=== PATIENT | male | born 1980 | race Hispanic/Latino ===

== ENCOUNTER 2016-08-19 14:31 | Emergency (ER) | payer MEDICAID ==
[2016-08-19 15:39] VITALS: BP 141/102
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
--- NOTE | 2016-08-19 16:23 | Cat Scan Report ---
CT CERVICAL SPINE WITHOUT CONTRAST INDICATION: C-spine tenderness. COMPARISON: None similar. FINDINGS: Noncontrast axial, sagittal and coronal CT reconstructions through the cervical spine demonstrate normal visualized intracranial appearance. Assessment of the spinal canal from C7 inferiorly compromised due to artifact from shoulder soft tissues. Clear included mastoid air cells. Symmetric occipital condyles. Normal anterior and posterior arches of C1. Intact craniocervical articulation with normal predental space, prevertebral soft tissues, vertebral body stature and posterior elements. Straightening noted, possibly positional versus spasm. Mild degenerative spurring from C4 inferiorly. Slight disc narrowing at few levels may also be present. Normal included thyroid. Clear visualized lung apices. On the obtained axial images: C5-C6 demonstrate mild diffuse disc bulge/osteophyte complex. C6-C7 also demonstrates central to right paracentral disc/osteophyte complex possibly approaching the cord. CONCLUSION: Cervical spine straightening and mild degenerative changes, as above. Please correlate. Thank you for the opportunity to participate in this patient's care.
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
[2016-08-19] MEDS ORDERED: TYLENOL PO ONE (17:27)
== END 2016-08-19 17:45 | disposition home or self-care (01) ==
LOC: ED 14:31
DX: R51 Headache (principal); M54.2 Cervicalgia; M25.511 Pain in right shoulder; M25.512 Pain in left shoulder; F17.200 Nicotine dependence, unspecified, uncomplicated; Z88.8 Allergy status to other drugs, medicaments and biological substances; V49.9XXA Car occupant (driver) (passenger) injured in unspecified traffic accident, initial encounter; Y93.89 Activity, other specified; Y99.9 Unspecified external cause status; Y92.410 Unspecified street and highway as the place of occurrence of the external cause
CPT/HCPCS: 70450; 72125

== ENCOUNTER 2016-10-23 11:44 | Emergency (ER) | payer MEDICAID ==
[2016-10-23 12:21] LABS: Basophils % (Auto) 0.6 % (0.0-1.8); Eosinophils % (Auto) 0.3 % (0.0-4.3); Hematocrit 44.2 % (35.5-45.6); Hemoglobin 14.6 gm/dl (11.8-15.2); Mean Corpuscular HGB Conc 33 % (32-34); Mean Corpuscular Hemoglobin 29 pg (28-32); Mean Corpuscular Volume 89 fl (84-94); Platelet Count 338 K/mm3 (140-440); Red Blood Count 4.98 M/mm3 (3.65-5.03); White Blood Count 14.8 K/mm3 (4.5-11.0)
[2016-10-23 12:39] LABS: Anion Gap 20 mmol/L; BUN/Creatinine Ratio 15.71; Blood Urea Nitrogen 11 mg/dL (9-20); Calcium 9.3 mg/dL (8.4-10.2); Carbon Dioxide 25 mmol/L (22-30); Chloride 105.1 mmol/L (98-107); Glucose 112 mg/dL (75-100); Sodium 146 mmol/L (137-145)
[2016-10-23 14:07] LABS: Urine Drugs of Abuse Note Disclamer
[2016-10-23 14:19] LABS: Bilirubin,Urine NEG (Negative); Blood,Urine NEG (Negative); Ketones,Urine NEG (Negative); Leukocyte Esterase,Urine NEG (Negative); Mucus,Urine FEW /HPF; Nitrite,Urine NEG (Negative); Protein,Urine <15 mg/dL mg/dL (Negative); Urobilinogen,Urine < 2.0 mg/dL (<2.0)
[2016-10-23] MEDS ORDERED: ZOFRAN ODT PO ONE (16:34)
[2016-10-23] MEDS ORDERED: CATAPRES PO ONE (16:34)
--- NOTE | 2016-10-23 18:22 | Emergency Department Report ---
ED Psych HPI - General Chief Complaint: Psych Stated Complaint: OPIATE WITHDRAWL Time Seen by Provider: 10/23/16 16:33 Source: patient, EMS Mode of arrival: Ambulatory - History of Present Illness Initial Comments: 36-year-old male with past medical history of chronic pain presenting to the emergency department complaining of opiate withdrawal. Patient states he's been on morphine and oxycodone for approximately 12 years secondary to herniated cervical discs and is now wanting to refrain from taking those medications. Patient states he is now going into withdrawals. Patient states his symptoms are nausea, and abdominal cramping. Pt denies: Fever/chills, chest pain, and vomiting. Patient states he's heard about Suboxone and he is interested in starting the treatment to help with his opiate withdrawal. - Related Data Home Medications Medication Instructions Recorded Confirmed Last Taken Morphine Sulfate 30 mg PO BID 08/19/16 10/23/16 08/18/16 oxyCODONE [Roxicodone] 10 mg PO Q6HR PRN 08/19/16 10/23/16 08/19/16 Allergies Allergy/AdvReac Type Severity Reaction Status Date / Time ketorolac tromethamine Allergy Shortness Verified 08/19/16 15:32 [From Toradol] of Breath tramadol Allergy Shortness Verified 08/19/16 15:32 of Breath ED Review of Systems ROS: Stated complaint: OPIATE WITHDRAWL Other details as noted in HPI Constitutional: denies: chills, fever Eyes: denies: eye pain, eye discharge, vision change ENT: denies: ear pain, throat pain Respiratory: denies: cough, shortness of breath, wheezing Cardiovascular: denies: chest pain, palpitations Endocrine: no symptoms reported Gastrointestinal: nausea. denies: abdominal pain, vomiting, diarrhea Genitourinary: denies: urgency, dysuria Musculoskeletal: denies: back pain, joint swelling, arthralgia Skin: denies: rash, lesions Neurological: denies: headache, weakness, paresthesias Psychiatric: anxiety. denies: depression, auditory hallucinations, visual hallucinations, homicidal thoughts, suicidal thoughts Hematological/Lymphatic: denies: easy bleeding, easy bruising ED Past Medical Hx - Past Medical History Previous Medical History?: Yes Hx Psychiatric Treatment: Yes (Treatment for cocaine, heroin and crack cocaine) Additional medical history: Opiate dependency. spinal stenosis, Herniated disc - Surgical History Past Surgical History?: Yes Hx Open Heart Surgery: Yes (as a child) Additional Surgical History: Melanoma removed from right forearm - Social History Smoking Status: Current Every Day Smoker Substance Use Type: Prescribed - Medications Home Medications: Home Medications Medication Instructions Recorded Confirmed Last Taken Type Morphine Sulfate 30 mg PO BID 08/19/16 10/23/16 08/18/16 History oxyCODONE [Roxicodone] 10 mg PO Q6HR PRN 08/19/16 10/23/16 08/19/16 History ED Physical Exam - General Limitations: No Limitations General appearance: alert, in no apparent distress - Head Head exam: Present: atraumatic, normocephalic - Eye Eye exam: Present: normal appearance - ENT ENT exam: Present: mucous membranes moist - Neck Neck exam: Present: normal inspection - Respiratory Respiratory exam: Present: normal lung sounds bilaterally. Absent: respiratory distress - Cardiovascular Cardiovascular Exam: Present: regular rate, normal rhythm. Absent: systolic murmur, diastolic murmur, rubs, gallop - GI/Abdominal GI/Abdominal exam: Present: soft, normal bowel sounds - Rectal Rectal exam: Present: deferred - Extremities Exam Extremities exam: Present: normal inspection - Back Exam Back exam: Present: normal inspection - Neurological Exam Neurological exam: Present: alert, oriented X3 - Psychiatric Psychiatric exam: Present: normal affect, normal mood - Skin Skin exam: Present: warm, dry, intact, normal color. 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 Pt has been evalauted by Psych Scrubber Machine Tender Lyubov who will attempt to find placement into Detox facility. Pt medically cleared. he is not on 1012 nor 2012 Critical Care Time: No Critical care attestation.: If time is entered above; I have spent that time in minutes in the direct care of this critically ill patient, excluding procedure time. ED Disposition Clinical Impression: Opioid withdrawal, Nausea Disposition: [id number] ANOTHER TYPE HLTHCARE Is pt being admited?: No Does the pt Need Aspirin: No Condition: Stable Instructions: Polysubstance Abuse (ED), Medical Clearance for Substance Abuse Treatment (ED) Referrals: PRIMARY CAREMD [Primary Care Provider] - 3-5 Days Time of Disposition: 00:58
[2016-10-24 11:25] VITALS: BP 138/78
--- NOTE | 2016-10-24 14:09 | Consultation ---
History of Present Illness - Reason for Consult Consult date: 10/24/16 Reason for consult: Mental Health Evaluation Requesting physician: IRIS SNIDER - Chief Complaint Chief complaint: "I want help" - History of Present Psychiatric Illness 36-year-old male with past medical history of chronic pain presenting to the emergency department complaining of opiate withdrawal. Per the patient, he is experiencing withdrawals, but denies SI/HI's and AVH's. He stated that his appetite is poor and experiencing sleep disturbance. He stated he wants to detox off the opioids, and hopefully in the future have a normal life. He denies recreational drug currently, but have experienced using crack cocaine 15 years ago. He denies excessive alcohol consumption (etoh). Medications and Allergies Allergies Allergy/AdvReac Type Severity Reaction Status Date / Time ketorolac tromethamine Allergy Shortness Verified 08/19/16 15:32 [From Toradol] of Breath tramadol Allergy Shortness Verified 08/19/16 15:32 of Breath Home Medications Medication Instructions Recorded Confirmed Last Taken Type Morphine Sulfate 30 mg PO BID 08/19/16 10/23/16 08/18/16 History oxyCODONE [Roxicodone] 10 mg PO Q6HR PRN 08/19/16 10/23/16 08/19/16 History Past psychiatric history - Past Medical History Past Medical History: other (Spinal Stenosis, Herniated disc) Past Surgical History: Other - past Psychiatric treatment and history psychiatric treatment history: Treated for recreational drug use 15 yrs ago (Cocaine and Marijuana). - Social History Social history: Lives alone Mental Status Exam - Vital signs Last Vital Signs Temp 98.3 F 10/24/16 11:29 Pulse 83 10/24/16 11:29 Resp 20 10/24/16 11:41 BP 138/78 10/24/16 11:29 Pulse Ox 100 10/24/16 11:41 - Exam Narrative exam: ROS: (-) depression MSE: Appearance: calm, cooperative Behavior: good eye contact Speech: regular rate and tone Mood: "feel bad" Affect: congruent to mood Thought Process: linearl Thought Content: denies SI/HI's and AVH's Motor Activity: ambulatory Cognition: A/Ox 3 Insight: fair Judgment: fair Results Result Diagrams: 10/23/16 12:07 10/23/16 12:07 All other labs normal. Assessment and Plan Assessment and plan: Impression: Opioid Use DO. Today is calm and cooperative during the assessment. He stated that he has been taking morphine and oxycodone for approximately 12 years for a herniated cervical discs. Denies SI/HI's and AVH's. DDx: Anxiety DO Recommendation/Plan: Patient is pending placement to [place] for detox.
== END 2016-10-24 11:54 | disposition other institution (70) ==
LOC: ED 11:44 → EEVIPCON 11:44 → ED 10-24 11:54
DX: F11.23 Opioid dependence with withdrawal (principal); R11.0 Nausea; F17.200 Nicotine dependence, unspecified, uncomplicated
CPT/HCPCS: 36415; 80048; 80307; 81001; 85025; 99285; G0480; 80320; Q0162